=== PATIENT | female | born 2000 ===

== ENCOUNTER → 2023-03-04 11:32 | Outpatient (CLI) | payer OTHER, SELFPAY ==
--- NOTE | 2023-03-04 11:35 | DI.US.S_ITS ---
PROCEDURE: US OB >= 14 WEEKS FETUS INDICATIONS: ANATOMY OUTSIDE/PRIOR DATING DATA: Last menstrual period (LMP): 10/01/2022. LMP-based estimated date of delivery (ANGELES): 07/08/2023. First dating scan (date and location): None listed. Estimated date of delivery (ANGELES) from first dating scan: None listed. The calculations are made using the clinical ANGELES of 07/08/2023. TECHNIQUE: Real-time scanning was performed of the fetus, with image documentation and biometric measurements. Endovaginal scanning: Not performed COMPARISON: None. FINDINGS: General: A single living intrauterine gestation is present. Presentation: Breech. Placenta: Placental position is anterior , without previa. Amniotic fluid index: 16.1 cm, normal range is 5-24 cm. Single deepest vertical pocket is 6.2 cm. heart rate: 155 beats per minute. Maternal cervical canal: 3.4 cm long. Normal lower limit is 2.5 cm. biometrics: Biparietal diameter: 5.3 cm, 22 weeks 0 days Head circumference: 19.6 cm, 21 weeks 6 days Abdominal circumference: 17 cm, 22 weeks Femur length: 3.7 cm, 21 weeks 5 days Clinically estimated gestational age: 22 weeks Composite gestational age from present scan: 21 weeks 6 days Estimated weight and percentile: 454 g, 35th percentile Anatomic survey: Neuro: Ventricles are non-dilated at less than 10 mm. Cisterna magna is normal at 3-11 mm. Cerebellum is normal in size and morphology. Nuchal skin fold: Normal at less than 6 mm between 14-21 weeks gestational age. Face: Nose and lips, facial profile are normal. Spine: No evidence for spina bifida. Heart: 4-chambered heart is present, with normal ventricular outflow tracts. Left ventricular echogenic focus. Diaphragm: Diaphragm is intact. Stomach: Left-sided stomach is present. Kidneys: No hydronephrosis. Normal is less than 5 mm in 2nd trimester, less than 7 mm in 3rd trimester. Cord: 3-vessel cord has orthotopic insertion. Bladder: Normal in size. Extremities: All 4 extremities identified. IMPRESSION: Single living intrauterine at 22 weeks, ANGELES of 07/08/2023. Echogenic focus within the left ventricle. Consider aneuploidal screening. Estimated weight 454 g, 35th percentile. We strive to produce accurate, complete, and clear reports of imaging services. To assist us in improving patient care, this report was composed using standard report templates and voice recognition software. Therefore, it may contain abnormal punctuation, insertions and/or omissions. Occasional wrong-word or sound-alike substitutions may occur. Though we review the report and make efforts to correct it, we do recommend that the report be read carefully in proper context to recognize any text inaccuracies. Dictated by: Dank Barrow M.D. on 03/04/2023 at 12:53 Approved by: Dank Barrow M.D. on 03/04/2023 at 13:02
== END ==
PROVIDERS: Referring Provider Specialist; Visit Provider Specialist
DX: Z34.82 Encounter for supervision of other normal pregnancy, second trimester (principal); Z3A.22 22 weeks gestation of pregnancy
CPT/HCPCS: 76811

== ENCOUNTER → 2023-04-23 10:44 | Outpatient (CLI) | payer OTHER, SELFPAY ==
[2023-04-23 12:20] LABS: Hematocrit 30.4 % (36-46); Hemoglobin 10.3 g/dL (12.0-16.0)
[2023-04-23 12:22] LABS: Add Manual Diff / Slide Review NO; Basophils Absolute Auto 0 /uL (0-100); Basophils Percent Auto 0.2 % (0-2); Eosinophils Absolute Auto 100 /uL (0-450); Eosinophils Percent Auto 0.6 % (2-4); Hematocrit 30.2 % (36-46); Hemoglobin 10.4 g/dL (12.0-16.0); Lymphocytes Absolute Auto 1400 /uL (1100-4500); Lymphocytes Percent Auto 14.3 % (25-40); Mean Corpuscular HGB Conc 34.3 % (30-36); Mean Corpuscular Hemoglobin 29.1 PG (26-34); Mean Corpuscular Volume 84.9 fL (80-100); Monocytes Absolute Auto 500 /uL (0-900); Monocytes Percent Auto 4.9 % (3-14); Neutrophils Absolute Auto 7700 /uL (1500-7000); Platelet Count 183 X10^3/uL (150-400); Red Blood Cell Count 3.56 X10^6/uL (4.0-5.2); Red Cell Distribution Width 13.9 % (11.6-14.8); White Blood Cell Count 9.7 X10^3/uL (4.5-11.0)
[2023-04-23 12:36] LABS: Alanine Aminotransferase 13 IU/L (<35); Aspartate Aminotransferase 21 IU/L (14-36); BUN Creatinine Ratio 20.5 (6-22); Blood Urea Nitrogen 8 mg/dL (7-17); Estimated Glomerular Filt Rate > 60 mL/min (>60); Uric Acid 4.1 mg/dL (2.5-6.2)
[2023-04-23 12:37] LABS: GTT (PREG) 1 Hour PP 50gm Dose 156 mg/dL (76-139)
== END ==
PROVIDERS: Specialist; Visit Provider Student in an Organized Health Care Education/Training Program
DX: Z34.93 Encounter for supervision of normal pregnancy, unspecified, third trimester (principal); Z87.59 Personal history of other complications of pregnancy, childbirth and the puerperium; Z3A.28 28 weeks gestation of pregnancy
CPT/HCPCS: 36415; 82565; 82950; 84450; 84460; 84520; 84550; 85014; 85018; 85025